=== PATIENT | female | born 1990 | race Two or more races ===

== ENCOUNTER 2022-02-18 09:45 | Emergency (ER) | payer OTHER ==
[~2022-02-18] VITALS: Ht 152.4 cm; Wt 90.7 kg
[2022-02-18] MEDS ORDERED: PROTONIX20 MG PO (10:06)
== END 2022-02-18 13:47 | disposition left against medical advice (07) ==
LOC: ER 09:45
DX: Z53.21 Procedure and treatment not carried out due to patient leaving prior to being seen by health care provider (principal)

== ENCOUNTER 2022-11-02 18:51 | Emergency (ER) | payer OTHER ==
[~2022-11-02] VITALS: Ht 154.9 cm; Wt 90.7 kg
[~2022-11-02 18:51] MED LIST: PROTONIX20 MG PO
== END 2022-11-02 22:56 | disposition home or self-care (01) ==
LOC: ER 18:51
DX: R10.2 Pelvic and perineal pain (principal); O26.899 Other specified pregnancy related conditions, unspecified trimester

== ENCOUNTER 2022-12-07 11:20 | Emergency (ER) | payer OTHER ==
[~2022-12-07] VITALS: Ht 154.9 cm; Wt 63.5 kg
== END 2022-12-07 16:30 | disposition home or self-care (01) ==
LOC: ER 11:20
DX: O20.8 Other hemorrhage in early pregnancy (principal); Z3A.09 9 weeks gestation of pregnancy; K21.9 Gastro-esophageal reflux disease without esophagitis; B34.9 Viral infection, unspecified; Z20.822 Contact with and (suspected) exposure to COVID-19; O23.31 Infections of other parts of urinary tract in pregnancy, first trimester; N39.0 Urinary tract infection, site not specified; R10.2 Pelvic and perineal pain

== ENCOUNTER 2022-12-31 10:34 | Outpatient (CLI) | payer OTHER | END 2022-12-31 12:45 | disposition home or self-care (01) | LOC: PRENATAL 10:34 | PROVIDERS: ATTEND Obstetrics & Gynecology Maternal & Fetal Medicine | DX: O36.80X0 Pregnancy with inconclusive fetal viability, not applicable or unspecified (principal); Z36.9 Encounter for antenatal screening, unspecified; Z14.8 Genetic carrier of other disease; Z3A.13 13 weeks gestation of pregnancy ==

== ENCOUNTER 2023-01-28 17:53 | Emergency (ER) | payer OTHER ==
[~2023-01-28] VITALS: Ht 162.6 cm; Wt 70.3 kg
== END 2023-01-28 22:49 | disposition home or self-care (01) ==
LOC: ER 17:54
PROVIDERS: General Practice
DX: O26.892 Other specified pregnancy related conditions, second trimester (principal); Z3A.16 16 weeks gestation of pregnancy; R10.2 Pelvic and perineal pain

== ENCOUNTER → 2023-05-13 15:28 | Outpatient (CLI) | payer OTHER | END | disposition home or self-care (01) | LOC: PRENATAL 15:28 | PROVIDERS: ATTEND Obstetrics & Gynecology Maternal & Fetal Medicine | DX: O26.849 Uterine size-date discrepancy, unspecified trimester (principal); O36.8199 Decreased fetal movements, unspecified trimester, other fetus; O99.210 Obesity complicating pregnancy, unspecified trimester; Z3A.32 32 weeks gestation of pregnancy ==

== ENCOUNTER 2023-06-03 22:48 | Outpatient (CLI) | payer OTHER ==
[~2023-06-03] VITALS: Ht 154.9 cm; Wt 94.3 kg
[2023-06-03] MEDS ORDERED: PRENATAL TABLE1 EAC1 PO (22:49)
[2023-06-03 23:50] LABS: URINE APPEARANCE Clear; URINE BILIRRUBIN Negative (NEGATIVE); URINE BLOOD Trace; URINE COLOR Yellow; URINE GLUCOSE Negative (NEGATIVE); URINE LEUKOCYTE Negative; URINE NITRATE Negative; URINE PROTEIN Negative (NEGATIVE)
[2023-06-03 23:50] LABS: HEMATOCRIT 31.1 % (36.0-45.00); HEMOGLOBIN 10.4 g/dL (12.0-15.00); MEAN CELL VOLUME 82.5 fL (80.00-100.00); MEAN CORPUSCULAR HEMOGLOBIN 27.7 pg (27.00-32.0); MEAN CORPUSCULAR HGB CONC 33.6 g/dl (32.0-36.0); PLATELET COUNT 196 K/uL (150-450); RED BLOOD COUNT 3.77 M/uL (4.00-6.00); RED CELL DISTRIBUTION WIDTH 14.9 % (11.5-14.5)
[2023-06-03 23:54] LABS: URINE BACTERIA 167.5 uL (0.0-1933); URINE EPITHELIAL CELLS 7.4 uL (0.0-38.8); URINE RBC 57.4 uL (0.0-20.8); URINE WBC 7.2 uL (0.0-23.2)
== END 2023-06-04 09:11 | disposition home or self-care (01) ==
LOC: OBS/DEL 22:48
PROVIDERS: ATTEND Obstetrics & Gynecology
DX: O26.893 Other specified pregnancy related conditions, third trimester (principal); Z3A.35 35 weeks gestation of pregnancy; R10.2 Pelvic and perineal pain

== ENCOUNTER 2023-06-23 14:15 | Inpatient (IN) | payer OTHER ==
[~2023-06-23] VITALS: Ht 154.9 cm; Wt 104.3 kg
[~2023-06-23 14:15] MED LIST changes: +PRENATAL TABLE1 EAC1 PO
[2023-07-06] MEDS ORDERED: AMPICILLIN SODIUM 2,000 MG VIAL ONE (08:43)
[2023-07-06] MEDS ORDERED: MISOPROSTOL 25 MCG/4 ML GEL.W.APPL VAG ONE ×2 (09:30→14:00)
[2023-07-06 09:31] LABS: HEMATOCRIT 32.7 % (36.0-45.00); MEAN CELL VOLUME 82.9 fL (80.00-100.00); MEAN CORPUSCULAR HEMOGLOBIN 27.8 pg (27.00-32.0); MEAN CORPUSCULAR HGB CONC 33.5 g/dl (32.0-36.0); PLATELET COUNT 182 K/uL (150-450); RED BLOOD COUNT 3.95 M/uL (4.00-6.00); RED CELL DISTRIBUTION WIDTH 15.3 % (11.5-14.5)
[2023-07-06 09:36] LABS: URINE APPEARANCE Clear; URINE BILIRRUBIN Negative (NEGATIVE); URINE COLOR Yellow; URINE GLUCOSE Negative (NEGATIVE); URINE LEUKOCYTE Negative; URINE NITRATE Negative; URINE PROTEIN Negative (NEGATIVE); URINE UROBILINOGEN 0.2 E.U./dl
[2023-07-06 09:38] LABS: URINE BACTERIA 796.2 uL (0.0-1933); URINE EPITHELIAL CELLS 23.9 uL (0.0-38.8); URINE RBC 38.5 uL (0.0-20.8); URINE WBC 14.5 uL (0.0-23.2)
[2023-07-06 09:41] LABS: URINE BLOOD TRACE
[2023-07-06] MEDS ORDERED: AMPICILLIN SODIUM 2,000 MG VIAL IV ONE (09:45)
[2023-07-06 10:05] LABS: INR < 0.93; PARTIAL THROMBOPLASTIN TIME 31.3 SECONDS (22.0-34.0); PROTHROMBIN TIME 9.3 SECONDS (9.0-11.5)
[2023-07-06] MEDS ORDERED: AMPICILLIN SODIUM 1,000 MG VIAL IV SCH (13:00)
[2023-07-06] MEDS ORDERED: OXYTOCIN 10 UNITS/ML VIAL ONE (16:36)
[2023-07-06] MEDS ORDERED: ERYTHROMYCIN BASE 3.5 GM OINT...G. OP ONE (16:36)
[2023-07-06] MEDS ORDERED: ERYTHROMYCIN BASE 1 GM TUBE OP ONE (17:30)
[2023-07-06] MEDS ORDERED: OXYTOCIN 10 UNITS/ML VIAL IV ONE (17:30)
[2023-07-06] MEDS ORDERED: PROMETHAZINE HCL 50 MG/ML AMPUL IM PRN (18:00)
[2023-07-06] MEDS ORDERED: MEPERIDINE HCL/PF 50 MG/ML VIAL IM PRN (18:00)
[2023-07-06 21:02] LABS: ABG PH 7.287 (7.35-7.45); ABG PO2 26.3 mmHg (80-100); BASE EXCESS 19.6 mmol/l; BICARBONATE 20.9 mmol/l (23-25); SaO2 38.5 %; Tco2 19.6 mmol/l; o2 21 %
[2023-07-07 06:48] LABS: HEMATOCRIT 29.7 % (36.0-45.00); HEMOGLOBIN 9.9 g/dL (12.0-15.00); MEAN CELL VOLUME 81.8 fL (80.00-100.00); MEAN CORPUSCULAR HEMOGLOBIN 27.4 pg (27.00-32.0); MEAN CORPUSCULAR HGB CONC 33.5 g/dl (32.0-36.0); PLATELET COUNT 171 K/uL (150-450); RED BLOOD COUNT 3.63 M/uL (4.00-6.00); RED CELL DISTRIBUTION WIDTH 15.2 % (11.5-14.5)
[2023-07-07] MEDS ORDERED: SIMETHICONE 125 MG CAPSULE PO SCH (08:00)
[2023-07-07] MEDS ORDERED: OxyCODONE HCL/APAP UD (PERCOCET) PO PRN (08:00)
[2023-07-07] MEDS ORDERED: PNV,CALCIUM 72/IRON/FOLIC ACID 1 TAB TABLET PO SCH (08:00)
[2023-07-07] MEDS ORDERED: DOCUSATE SODIUM 100MG CAP PO SCH (08:00)
== END 2023-07-08 14:54 | disposition home or self-care (01) | DRG 788 ==
LOC: LDR 07-03 14:15 → O/R 07-06 17:19 → OB/GYN 07-06 19:01
PROVIDERS: ADMIT Obstetrics & Gynecology; ATTEND Obstetrics & Gynecology
PROC: 3E033VJ Introduction of Other Hormone into Peripheral Vein, Percutaneous Approach (ICD-10-PCS; 2023-07-06)
PROC: 3E0P7VZ Introduction of Hormone into Female Reproductive, Via Natural or Artificial Opening (ICD-10-PCS; 2023-07-06)
PROC: 4A1HXCZ Monitoring of Products of Conception, Cardiac Rate, External Approach (ICD-10-PCS; 2023-07-06)
PROC: 10D00Z1 Extraction of Products of Conception, Low, Open Approach (ICD-10-PCS; principal; 2023-07-06 16:00)
DX: O61.0 Failed medical induction of labor (principal); O62.0 Primary inadequate contractions; Z3A.40 40 weeks gestation of pregnancy; Z37.0 Single live birth; Z20.822 Contact with and (suspected) exposure to COVID-19